=== PATIENT | male | born 1950 | race Caucasian/White ===

== ENCOUNTER 2020-03-06 19:22 | Emergency (ER) | payer MEDICARE, MEDICAID ==
--- NOTE | 2020-03-06 19:42 | EDM.PDOC ---
ED HPI GENERAL MEDICAL PROBLEM - General Chief Complaint: Cardiovascular Problem Stated Complaint: MEDICAL [facility]IA [facility] Time Seen by Provider: 03/06/20 19:38 Source of Information: Reports: Patient, EMS, Detention Records History Limitations: Reports: Other (minimal old records) - History of Present Illness INITIAL COMMENTS - FREE TEXT/NARRATIVE: 69 yo male here with self-limiting chest pains that began at the [facility] that he is currently staying at while healing from his recent heart attack. He was hospitalized in [place] for his IN. He is unable to tell me anything about that hospitalization. His home is in [facility] and he lives alone. He does not have NTG on his list of meds and was not given any before arriving in the ER. He has a DNR code status. EMS noted stable vitals and only mild chest pain. ASA was given per EMS. On arrival in the ER his CP is gone. He does not recall any nausea, diaphoresis, or worsening SOB tonight. He cannot tell me how long he had his pain before it resolved. Is a smoker and has no plans to quite. 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 chest Pain Score (Numeric/FACES): 8 - Related Data Allergies Allergy/AdvReac Type Severity Reaction Status Date / Time Latex, Natural Rubber Allergy Other Verified 03/06/20 20:21 levofloxacin Allergy Other Verified 03/06/20 20:21 lisinopril Allergy Other Verified 03/06/20 20:21 potassium Allergy Other Verified 03/06/20 20:21 Home Meds: Home Meds Albuterol Sulfate [Albuterol Sulfate Hfa] 8.5 gm IH Q4H PRN 03/06/20 [History] Budesonide/Formoterol [Symbicort 80-4.5 MCG] 2 puff INH BID 03/06/20 [History] Clopidogrel Bisulfate [Plavix] 75 mg PO DAILY 03/06/20 [History] Finasteride [Proscar] 5 mg PO DAILY 03/06/20 [History] Omeprazole 20 mg PO BID 03/06/20 [History] Sennosides/Docusate Sodium [Senna Plus 8.6-50 mg Tablet] 2 tab PO DAILY 03/06/20 [History] Tamsulosin [Tamsulosin 24 Hr] 0.4 mg PO DAILY 03/06/20 [History] Tiotropium [Spiriva] 18 mcg INH BID 03/06/20 [History] atorvaSTATin [Lipitor] 80 mg PO BEDTIME 03/06/20 [History] ED ROS GENERAL - Review of Systems Review Of Systems: See Below Constitutional: Reports: No Symptoms HEENT: Reports: No Symptoms Respiratory: Reports: Shortness of Breath (chronic, not worse) Cardiovascular: Reports: Chest Pain (resolved on arrival). Denies: Claudication, Dyspnea on Exertion, Edema, Orthopnea, Palpitations, PND, Syncope Endocrine: Reports: No Symptoms GI/Abdominal: Reports: No Symptoms : Reports: No Symptoms Musculoskeletal: Reports: No Symptoms Skin: Reports: No Symptoms Neurological: Reports: No Symptoms Psychiatric: Reports: No Symptoms ED EXAM, GENERAL - Physical Exam Exam: See Below Exam Limited By: No Limitations General Appearance: Alert, WD/WN, No Apparent Distress, Thin Eye Exam: Bilateral Eye: Normal Inspection Ears: Normal External Exam, Normal Canal, Hearing Grossly Normal, Hearing Loss (bilateral hearing aids) Ear Exam: Bilateral Ear: Auricle Normal, Canal Normal Nose: Normal Inspection, No Blood Throat/Mouth: Normal Inspection, Normal Lips, Normal Oropharynx, Normal Voice, No Airway Compromise Head: Atraumatic, Normocephalic Neck: Normal Inspection Respiratory/Chest: No Respiratory Distress, Lungs Clear, No Accessory Muscle Use, Chest Non-Tender, Decreased Breath Sounds. No: Respiratory Distress, Crackles, Rales, Rhonchi, Wheezing Cardiovascular: Regular Rate, Rhythm, No Edema GI/Abdominal: Normal Bowel Sounds, Soft, Non-Tender, No Distention Back Exam: Normal Inspection. No: CVA Tenderness (R), CVA Tenderness (L) Extremities: Normal Inspection, Normal Range of Motion, Non-Tender, No Pedal Edema. No: Pedal Edema Neurological: Alert, Oriented, CN II-XII Intact, Normal Cognition, No Motor/Sensory Deficits Psychiatric: Normal Affect, Normal Mood Skin Exam: Warm, Dry, Intact, Normal Color, No Rash EKG INTERPRETATION EKG Date: 06/21/20 Time: 19:25 Rhythm: NSR Rate (Beats/Min): 55 [place]: Normal P-Wave: Present QRS: Other (L anterior fascicular block) ST-T: Normal QT: Normal Comparison: NA - No Prior EKG EKG Interpretation Comments: flipped T's inferior leads, unknown age. EKG repeated @ 2043h due to a recurrence of his chest pain, this was completely unchanged from his initial EKG done when pain free. Course - Vital Signs Text/Narrative:: Was admitted to [place] for a Non-STEMI, heart cath there showed non-obstructive dz. CT of chest was non contributory. Endoscopy showed severe esophagitis and he was started on a PPI. Last Recorded V/S: Last Vital Signs Temp 36.7 C 03/06/20 20:38 Pulse 52 L 03/06/20 22:51 Resp 14 03/06/20 22:51 BP 118/57 L 03/06/20 22:51 Pulse Ox 98 03/06/20 22:51 - Orders/Labs/Meds Orders: Active Orders 24 hr Category Date Time Status Cardiac Monitoring [RC] .As Directed Care 03/06/20 19:35 Active EKG Documentation Completion [RC] ASDIRECTED Care 03/06/20 19:35 Active EKG Documentation Completion [RC] ASDIRECTED Care 03/06/20 20:41 Active Nitroglycerin [Nitrostat] Med 03/06/20 20:40 Active 0.4 mg SL Q5M PRN EKG 12 Lead [EK] Routine Ther 03/06/20 19:35 Ordered EKG 12 Lead [EK] Routine Ther 03/06/20 20:41 Ordered Medication Orders Nitroglycerin (Nitrostat) 0.4 mg SL Q5M PRN PRN Reason: Chest Pain Last Admin: 03/06/20 21:17 Dose: 0.4 mg Documented by: BENITA Labs: Laboratory Tests 03/06/20 03/06/20 03/06/20 Range/Units 20:07 20:07 23:01 WBC 10.2 (4.5-11.0) K/uL RBC 3.38 L (4.30-5.90) M/uL Hgb 11.7 L (12.0-15.0) g/dL Hct 36.5 L (40.0-54.0) % MCV 108 H (80-98) fL MCH 35 H (27-31) pg MCHC 32 (32-36) % Plt Count 452 H (150-400) K/uL Sodium 140 (140-148) mmol/L Potassium 3.8 (3.6-5.2) mmol/L Chloride 106 (100-108) mmol/L Carbon Dioxide 25 (21-32) mmol/L Anion Gap 9.3 (5.0-14.0) mmol/L BUN 16 (7-18) mg/dL Creatinine 0.9 (0.8-1.3) mg/dL Est Cr Clr Drug Dosing 53.13 mL/min Estimated GFR (MDRD) > 60 (>60) Glucose 111 H (74-106) mg/dL Calcium 8.3 L (8.5-10.1) mg/dL Troponin I < 0.017 < 0.017 (0.000-0.056) ng/mL Meds: Medications Generic Name Dose Route Start Last Admin Trade Name Freq PRN Reason Stop Dose Admin Nitroglycerin 0.4 mg 03/06/20 20:40 03/06/20 21:17 Nitrostat SL 0.4 mg Q5M PRN Administration Chest Pain Discontinued Medications Generic Name Dose Route Start Last Admin Trade Name Freq PRN Reason Stop Dose Admin Acetaminophen 1,000 mg 03/06/20 22:06 03/06/20 22:16 Tylenol Extra Strength PO 03/06/20 22:07 1,000 mg ONETIME ONE Administration Al Hydroxide/Mg Hydroxide 15 0 ml 03/06/20 20:55 03/06/20 21:07 ml/ Lidocaine HCl 15 ml PO 03/06/20 20:56 30 ml ONETIME ONE Administration Sodium Chloride 500 mls @ 999 mls/hr 03/06/20 21:36 03/06/20 21:30 Normal Saline IV 03/06/20 22:06 999 mls/hr .BOLUS ONE Administration Morphine Sulfate 2 mg 03/06/20 21:22 03/06/20 21:35 Morphine IVPUSH 03/06/20 21:23 2 mg ONETIME ONE Administration Morphine Sulfate 2 mg 03/06/20 22:34 03/06/20 22:42 Morphine IVPUSH 03/06/20 22:35 2 mg ONETIME ONE Administration Sucralfate 1 gm 03/06/20 22:07 03/06/20 22:16 Carafate PO 03/06/20 22:08 1 gm ONETIME ONE Administration - Re-Assessments/Exams Free Text/Narrative Re-Assessment/Exam: 03/06/20 21:46 Pain returned in the ER and he did not get relief with either NTG SL or GI cocktail po. Will give Awaiting records from his recent [place] admission. Departure - Departure Time of Disposition: 23:30 Disposition: Home, Self-Care 01 Condition: Fair Clinical Impression: Esophagitis Instructions: Esophagitis Referrals: Rishi Roe MD [Primary Care Provider] - Forms: ED Department Discharge Additional Instructions: Acetaminophen up to 650 mg every 4 hrs for pain relief. Give Gaviscon 30 ml up to 4 times a day for heart burn symptoms. Continue his other medicines as currently. Recheck with primary care later in the week. Return as needed. Sepsis Event Note (ED) - Focused Exam Vital Signs: Vital Signs Temp Pulse Resp BP BP Pulse Ox 03/06/20 22:51 52 L 14 118/57 L 98 03/06/20 21:59 53 L 10 L 120/60 98 03/06/20 21:37 54 L 16 108/55 L 97 03/06/20 21:17 109/61 03/06/20 20:58 53 L 12 109/61 99 03/06/20 20:54 55 L 13 93/51 L 98 03/06/20 20:38 36.7 C 58 L 20 115/61 99 03/06/20 19:40 36.7 C 58 L 20 115/61 99 - My Orders Last 24 Hours: My Active Orders 03/06/20 19:35 Cardiac Monitoring [RC] .As Directed EKG Documentation Completion [RC] ASDIRECTED EKG 12 Lead [EK] Routine 03/06/20 20:40 Nitroglycerin [Nitrostat] 0.4 mg SL Q5M PRN 03/06/20 20:41 EKG Documentation Completion [RC] ASDIRECTED EKG 12 Lead [EK] Routine - Assessment/Plan Last 24 Hours: My Active Orders 03/06/20 19:35 Cardiac Monitoring [RC] .As Directed EKG Documentation Completion [RC] ASDIRECTED EKG 12 Lead [EK] Routine 03/06/20 20:40 Nitroglycerin [Nitrostat] 0.4 mg SL Q5M PRN 03/06/20 20:41 EKG Documentation Completion [RC] ASDIRECTED EKG 12 Lead [EK] Routine
[2020-03-06] MEDS ORDERED: Nitroglycerin 0.4 MG Tab.SL SL PRN (20:40)
[2020-03-06] MEDS ORDERED: Alum Hydrox/Mag Hydrox/Simeth 15 ML, Lidocaine 2% 15 ML PO ONE ×2 (20:55)
[2020-03-06] MEDS ORDERED: Morphine 4 MG/ML Syringe IVPUSH ONE ×2 (21:22→22:34)
[2020-03-06] MEDS ORDERED: Sodium Chloride 0.9% 500 ML IV ONE (21:36)
[2020-03-06] MEDS ORDERED: Acetaminophen 500 MG Tab PO ONE (22:06)
[2020-03-06] MEDS ORDERED: Sucralfate Suspension 1 GM/10 ML Cup PO ONE (22:07)
== END 2020-03-06 23:52 | disposition home or self-care (01) ==
LOC: JP.ED 19:22
DX: K20.9 Esophagitis, unspecified (principal); I44.4 Left anterior fascicular block; Z91.040 Latex allergy status; Z88.8 Allergy status to other drugs, medicaments and biological substances; Z79.02 Long term (current) use of antithrombotics/antiplatelets; Z79.899 Other long term (current) drug therapy
CPT/HCPCS: 36415; 80048; 84484; 85027; 93005; 96374; 96376; 99285; A9270; J2270; J7030; 93010

== ENCOUNTER 2020-04-26 19:53 | Emergency (ER) | payer MEDICARE, MEDICAID ==
--- NOTE | 2020-04-26 20:44 | EDM.PDOC ---
ED HPI GENERAL MEDICAL PROBLEM - General Chief Complaint: General Stated Complaint: MEDICAL VIA [facility] Time Seen by Provider: 04/26/20 20:36 Source of Information: Reports: Patient, RN Notes Reviewed History Limitations: Reports: Uncooperative - History of Present Illness INITIAL COMMENTS - FREE TEXT/NARRATIVE: 69-year-old gentleman presents emergency department today for evaluation, he [facility] for difficulty arouse eating. He states to the nursing staff that he just wanted to take a nap. He admits to me that he has left-sided chest pain he is a very difficult historian difficult to extract information from. History of recent myocardial infarction and he is a DNR/DNI he has been refusing his medications, and I asked him about this he states he just does not want to take him, He does admit that he slipped when transferring from the wheelchair to the commode when he slipped the right side of his rib cage hit the arm of the wheelchair Right Chest Pain Score (Numeric/FACES): 5 - Related Data Allergies Allergy/AdvReac Type Severity Reaction Status Date / Time Latex, Natural Rubber Allergy Other Verified 04/26/20 20:10 levofloxacin Allergy Other Verified 04/26/20 20:10 lisinopril Allergy Other Verified 04/26/20 20:10 potassium Allergy Other Verified 04/26/20 20:10 Home Meds: Home Meds Albuterol Sulfate [Albuterol Sulfate Hfa] 8.5 gm IH Q4H PRN 03/06/20 [History] Budesonide/Formoterol [Symbicort 80-4.5 MCG] 2 puff INH BID 03/06/20 [History] Clopidogrel Bisulfate [Plavix] 75 mg PO DAILY 03/06/20 [History] Finasteride [Proscar] 5 mg PO DAILY 03/06/20 [History] Omeprazole 20 mg PO BID 03/06/20 [History] Sennosides/Docusate Sodium [Senna Plus 8.6-50 mg Tablet] 2 tab PO DAILY 03/06/20 [History] Tamsulosin [Tamsulosin 24 Hr] 0.4 mg PO DAILY 03/06/20 [History] Tiotropium [Spiriva] 18 mcg INH DAILY 03/06/20 [History] atorvaSTATin [Lipitor] 80 mg PO BEDTIME 03/06/20 [History] Acetaminophen [Tylenol Extra Strength] 2 tab PO TID 04/26/20 [History] oxyCODONE 1 tab PO Q4H 04/26/20 [History] polyethylene glycoL 3350 [MiraLAX] 1 packet PO DAILY 04/26/20 [History] Past Medical History Cardiovascular History: Reports: CAD, NE Respiratory History: Reports: COPD Gastrointestinal History: Reports: GERD, Other (See Below) Other Gastrointestinal History: esophagitis. Cachexia. malnutrition Genitourinary History: Reports: Retention, Urinary Other Genitourinary History: has chronic indwelling catheter Endocrine/Metabolic History: Reports: Hypomagnesemia Hematologic History: Reports: Anemia, Anticoagulation Therapy, B12 Deficiency - Past Surgical History GI Surgical History: Reports: Appendectomy, Cholecystectomy, Small Bowel, Other (See Below) Other GI Surgeries/Procedures: SBR Social & Family History - Family History Family Medical History: Noncontributory - Tobacco Use Smoking Status *Q: Current Every Day Smoker Years of Tobacco use: 50 Packs/Tins Daily: 0.5 - Caffeine Use Caffeine Use: Reports: None - Recreational Drug Use Recreational Drug Use: No ED ROS GENERAL - Review of Systems Review Of Systems: See Below (Not cooperative) Constitutional: Reports: No Symptoms HEENT: Reports: No Symptoms Respiratory: Reports: No Symptoms Cardiovascular: Reports: Chest Pain GI/Abdominal: Reports: No Symptoms Musculoskeletal: Reports: Other (Chest wall pain after trauma) ED EXAM, GENERAL - Physical Exam Exam: See Below Exam Limited By: Uncooperative General Appearance: Alert, No Apparent Distress Respiratory/Chest: No Respiratory Distress, Lungs Clear, Normal Breath Sounds, No Accessory Muscle Use, Chest Non-Tender Cardiovascular: Regular Rate, Rhythm, No Murmur GI/Abdominal: Soft, Non-Tender Extremities: No Pedal Edema Course - Vital Signs Last Recorded V/S: Last Vital Signs Temp 98.1 F 04/26/20 20:19 Pulse 85 04/26/20 22:36 Resp 22 H 04/26/20 22:36 BP 119/53 L 04/26/20 22:36 Pulse Ox 96 04/26/20 22:36 - Orders/Labs/Meds Orders: Active Orders 24 hr Category Date Time Status Cardiac Monitoring [RC] .As Directed Care 04/26/20 20:41 Active EKG Documentation Completion [RC] ASDIRECTED Care 08/11/20 20:42 Active Chest 1V Frontal [CR] Stat Exams 04/26/20 20:42 Taken Iopamidol [Isovue-300 (61%)] Med 04/26/20 21:45 Active 100 ml IV . DIRECTED Sodium Chloride 0.9% [Normal Saline] 80 ml Med 04/26/20 21:45 Active IV ASDIRECTED Sodium Chloride 0.9% [Saline Flush] Med 04/26/20 21:35 Active 10 ml FLUSH ASDIRECTED PRN fentaNYL [Sublimaze] Med 04/26/20 23:10 Once 50 mcg IVPUSH ONETIME ONE EKG 12 Lead [EK] Stat Ther 04/26/20 20:41 Ordered Medication Orders Sodium Chloride (Normal Saline) 80 mls @ 3 mls/sec IV ASDIRECTED ISAÍAS Last Admin: 04/26/20 21:58 Dose: 3 mls/sec Documented by: KELLY Iopamidol (Isovue-300 (61%)) 100 ml IV . DIRECTED ISAÍAS Last Admin: 04/26/20 21:58 Dose: 100 ml Documented by: KELLY Sodium Chloride (Saline Flush) 10 ml FLUSH ASDIRECTED PRN PRN Reason: Keep Vein Open Last Admin: 04/26/20 21:58 Dose: 10 ml Documented by: KELLY Labs: Laboratory Tests 04/26/20 04/26/20 04/26/20 Range/Units 20:54 20:54 20:54 WBC 10.4 (4.5-11.0) K/uL RBC 4.36 (4.30-5.90) M/uL Hgb 12.6 (12.0-15.0) g/dL Hct 39.5 L (40.0-54.0) % MCV 91 (80-98) fL MCH 29 (27-31) pg MCHC 32 (32-36) % Plt Count 376 (150-400) K/uL Neut % (Auto) 70 H (36-66) % Lymph % (Auto) 12 L (24-44) % Alfalfa % (Auto) 11 H (2-6) % Eos % (Auto) 6 H (2-4) % Baso % (Auto) 1 (0-1) % Sodium 139 L (140-148) mmol/L Potassium 4.3 (3.6-5.2) mmol/L Chloride 104 (100-108) mmol/L Carbon Dioxide 28 (21-32) mmol/L Anion Gap 11.3 (5.0-14.0) mmol/L BUN 15 (7-18) mg/dL Creatinine 0.9 (0.8-1.3) mg/dL Est Cr Clr Drug Dosing 53.03 mL/min Estimated GFR (MDRD) > 60 (>60) Glucose 117 H (74-106) mg/dL Lactic Acid 0.9 (0.4-2.0) mmol/L Calcium 8.5 (8.5-10.1) mg/dL Total Bilirubin 0.5 (0.2-1.0) mg/dL AST 14 L (15-37) U/L ALT 18 (12-78) U/L Alkaline Phosphatase 93 (46-116) U/L Troponin I < 0.017 (0.000-0.056) ng/mL Total Protein 6.8 (6.4-8.2) g/dL Albumin 3.0 L (3.4-5.0) g/dL Globulin 3.8 H (2.3-3.5) g/dL Albumin/Globulin Ratio 0.8 L (1.2-2.2) Lipase 37 L (73-393) U/L Meds: Medications Generic Name Dose Route Start Last Admin Trade Name Freq PRN Reason Stop Dose Admin Sodium Chloride 80 mls @ 3 mls/sec 04/26/20 21:45 04/26/20 21:58 Normal Saline IV 3 mls/sec ASDIRECTED ISAÍAS Administration Iopamidol 100 ml 04/26/20 21:45 04/26/20 21:58 Isovue-300 (61%) IV 100 ml . DIRECTED ISAÍAS Administration Sodium Chloride 10 ml 04/26/20 21:35 04/26/20 21:58 Saline Flush FLUSH 10 ml ASDIRECTED PRN Administration Keep Vein Open Discontinued Medications Generic Name Dose Route Start Last Admin Trade Name Freq PRN Reason Stop Dose Admin Fentanyl 50 mcg 04/26/20 20:58 04/26/20 21:09 Sublimaze IM 04/26/20 20:59 50 mcg ONETIME ONE Administration Fentanyl 50 mcg 04/26/20 23:10 Sublimaze IVPUSH 04/26/20 23:11 ONETIME ONE Departure - Departure Time of Disposition: 23:12 Disposition: DC/[facility]fer to [facility] Condition: Poor Clinical Impression: Chest wall pain - Discharge Information Instructions: Nonspecific Chest Pain, Adult Referrals: Rishi Roe MD [Primary Care Provider] - Forms: ED Department Discharge Additional Instructions: Use hydrocodone as needed for pain control, please followup with your primary care provider in 3-5 days if not better, please call return to the emergency department with worsening of symptoms. Sepsis Event Note (ED) - Evaluation Sepsis Screening Result: No Definite Risk - Focused Exam Vital Signs: Vital Signs Temp Pulse Resp BP Pulse Ox 04/26/20 22:36 85 22 H 119/53 L 96 04/26/20 22:00 75 19 120/61 93 L 04/26/20 20:33 74 103/50 L 94 L 04/26/20 20:19 98.1 F 76 12 116/44 L 95 04/26/20 19:59 98.1 F 76 12 116/44 L 95 - My Orders Last 24 Hours: My Active Orders 04/26/20 20:41 Cardiac Monitoring [RC] .As Directed EKG 12 Lead [EK] Stat 04/26/20 20:42 EKG Documentation Completion [RC] ASDIRECTED Chest 1V Frontal [CR] Stat 04/26/20 21:35 Sodium Chloride 0.9% [Saline Flush] 10 ml FLUSH ASDIRECTED PRN 04/26/20 21:45 Iopamidol [Isovue-300 (61%)] 100 ml IV . DIRECTED Sodium Chloride 0.9% [Normal Saline] 80 ml IV ASDIRECTED 04/26/20 23:10 fentaNYL [Sublimaze] 50 mcg IVPUSH ONETIME ONE - Assessment/Plan Last 24 Hours: My Active Orders 04/26/20 20:41 Cardiac Monitoring [RC] .As Directed EKG 12 Lead [EK] Stat 04/26/20 20:42 EKG Documentation Completion [RC] ASDIRECTED Chest 1V Frontal [CR] Stat 04/26/20 21:35 Sodium Chloride 0.9% [Saline Flush] 10 ml FLUSH ASDIRECTED PRN 04/26/20 21:45 Iopamidol [Isovue-300 (61%)] 100 ml IV . DIRECTED Sodium Chloride 0.9% [Normal Saline] 80 ml IV ASDIRECTED 04/26/20 23:10 fentaNYL [Sublimaze] 50 mcg IVPUSH ONETIME ONE Plan: Assessment Acuity = acute Site and laterality = chest wall pain Etiology = secondary to trauma Manifestations = none Location of injury = Home Lab values = CBC, CMP, troponin all within normal limits CT scan of the chest does show pulmonary nodule which informs me does not know however no rib fractures are appreciated Plan Discharged home with hydrocodone 5/325 1 tab p.o. 3 times daily PRN total #6 he will be transferred [facility] This note was dictated using [employer] voice recognition software please call with any questions on syntax or grammar.
[2020-04-26] MEDS ORDERED: fentaNYL 100 MCG/2 ML SDV IM ONE (20:58)
[2020-04-26] MEDS ORDERED: Sodium Chloride 0.9% 10 ML Syringe FLUSH PRN (21:35)
[2020-04-26] MEDS ORDERED: Iopamidol 612 MG/ML 100 ML Bottle IV SCH (21:45)
[2020-04-26] MEDS ORDERED: Sodium Chloride 0.9% 80 ML IV SCH (21:45)
--- NOTE | 2020-04-26 22:51 | CRLCT ---
INDICATION: Fall with right-sided rib pain TECHNIQUE: CT chest was acquired with 100 cc Isovue-300 IV contrast. COMPARISON: None FINDINGS: Cardiovascular structures: Heart size is normal. Thoracic aorta and main pulmonary artery are normal in caliber. Mediastinum and berto: No mass or adenopathy. Lungs: Emphysema. 1.2 x 1.1 cm pulmonary nodule in the right upper lobe. Ill-defined patchy opacity in the left upper lobe. Pleura and pericardium: No effusions. Chest wall and axilla: No mass or adenopathy. Upper abdomen: Unremarkable. Bones: Stimulator device in the thoracic spinal canal. IMPRESSION: 1.2 cm pulmonary nodule in the right upper lobe. Recommend PET-CT for further evaluation. Patchy opacity in the left upper lobe may represent infection. Please note that all CT scans at this facility use dose modulation, iterative reconstruction, and/or weight-based dosing when appropriate to reduce radiation dose to as low as reasonably achievable. Dictated by Winnie Cruz MD @ Apr 26 2020 10:44PM Signed by Dr. Winnie Cruz @ Apr 26 2020 10:50PM
[2020-04-26] MEDS ORDERED: fentaNYL 100 MCG/2 ML SDV IVPUSH ONE (23:10)
--- NOTE | 2020-04-28 09:41 | CR ---
CHEST: Portable 04/26/2020 at 9:11 PM CLINICAL HISTORY:Right-sided rib pain COMPARISON:None FINDINGS: Heart size is normal. There are atherosclerotic changes in the aorta.. The lungs are hyperaerated. There is patchy density in the left the lower lobe. Impression: Changes of COPD Patchy left lower lobe density may represent pneumonic infiltrate
== END 2020-04-27 00:03 ==
LOC: JP.ED 19:53
DX: R07.89 Other chest pain (principal); I25.10 Atherosclerotic heart disease of native coronary artery without angina pectoris; I25.2 Old myocardial infarction; J44.9 Chronic obstructive pulmonary disease, unspecified; K21.9 Gastro-esophageal reflux disease without esophagitis; F17.210 Nicotine dependence, cigarettes, uncomplicated; Z88.1 Allergy status to other antibiotic agents; Z88.8 Allergy status to other drugs, medicaments and biological substances; Z91.040 Latex allergy status; Z79.02 Long term (current) use of antithrombotics/antiplatelets
CPT/HCPCS: 36415; 71045; 71260; 80053; 83605; 83690; 84484; 85025; 93005; 93010; 96372; 96374; 99285; J3010; J7050; Q9967; 99283